=== PATIENT | male | born 1970 | race Caucasian/White ===

== ENCOUNTER 2019-01-29 11:26 | Day surgery (SDC) | payer OTHER ==
[2019-01-29] MEDS ORDERED: Sodium Chloride 0.9(Preservative Free) 10 ML IJ ONE (11:27)
[2019-01-29] MEDS ORDERED: DIPRIVAN 200 MG/20 ML IV ONE (11:27)
[2019-01-29] MEDS ORDERED: Ketamine HCl 50 MG/ML IV ONE (11:27)
[2019-01-29] MEDS ORDERED: Depo-Medrol 40 MG/ML IM ONE (11:27)
[2019-01-29] MEDS ORDERED: Decadron 4 MG INJ IV ONE (11:27)
[2019-01-29] MEDS ORDERED: Xylocaine 1% Vial 30 ML PF IJ ONE (11:27)
--- NOTE | 2019-01-29 15:00 | XRAY ---
34 seconds fluoroscopy time in surgery for left L4-S1 MIR and left piriformis muscle injection.
--- NOTE | 2019-01-29 15:01 | XRAY ---
Indication: Left L4-S1 MIR and left piriformis injection. Intraoperative fluoroscopy was provided for 34 seconds. Single digital spot image of the lumbar spine submitted for interpretation demonstrates posterior needle tips projecting over the expected course of the left L4-L5 nerve roots. Single digital spot image of the pelvis demonstrates posterior needle tip projecting over the left piriformis muscle. Small amount of contrast injected for both needle tip placement. Correlate with intraoperative findings/report.
[2019-01-29] MEDS ORDERED: Lactated Ringers 1,000 ML IV ONE (17:04)
== END 2019-01-29 14:20 | disposition home or self-care (01) ==
LOC: SDC-PAIN 11:26
PROVIDERS: ATTEND Psychiatry & Neurology Pain Medicine
DX: M54.16 Radiculopathy, lumbar region (principal); M79.18 Myalgia, other site; Z79.899 Other long term (current) drug therapy
CPT/HCPCS: 20552; 64483; 64484; 72020; 77003; J1030; J1100; J2001; J2704; Q9966

== ENCOUNTER 2019-07-16 12:37 | Day surgery (SDC) | payer OTHER ==
[2019-07-16] MEDS ORDERED: Decadron 4 MG INJ IV ONE (12:38)
[2019-07-16] MEDS ORDERED: Xylocaine 1% Vial 30 ML PF IJ ONE (12:38)
[2019-07-16] MEDS ORDERED: Depo-Medrol 40 MG/ML IM ONE (12:38)
[2019-07-16] MEDS ORDERED: Sodium Chloride 0.9(Preservative Free) 10 ML IJ ONE (12:38)
[2019-07-16] MEDS ORDERED: DIPRIVAN 200 MG/20 ML IV ONE (14:00)
[2019-07-16] MEDS ORDERED: Ketamine HCl 50 MG/ML ONE (14:01)
--- NOTE | 2019-07-16 14:52 | XRAY ---
23 seconds fluoroscopy time in surgery for left transforaminal MIR.
--- NOTE | 2019-07-16 14:52 | XRAY ---
Indication: Left L4-S1 transforaminal MIR. Intraoperative fluoroscopy was provided for 23 seconds. 4 digital spot images submitted for interpretation demonstrates posterior needle tips projecting over the expected course of the left L4 and L5 nerve roots. Small amount of contrast injected for needle tip placement. Correlate with intraoperative findings/report.
--- NOTE | 2019-07-16 15:02 | XRAY ---
12 seconds fluoroscopy time in surgery for left piriformis muscle injection.
--- NOTE | 2019-07-16 15:02 | XRAY ---
Indication: Left piriformis muscle injection. Intraoperative fluoroscopy was provided for 12 seconds. 2 digital spot images submitted for interpretation demonstrates posterior needle tip projecting over the expected left piriformis muscle. Small amount of contrast injected for needle tip placement. Correlate with intraoperative findings/report.
[2019-07-16] MEDS ORDERED: Lactated Ringers 1,000 ML IV ONE (15:19)
== END 2019-07-16 14:33 | disposition home or self-care (01) ==
LOC: SDC-PAIN 12:37
PROVIDERS: ATTEND Psychiatry & Neurology Pain Medicine
DX: M54.16 Radiculopathy, lumbar region (principal); M79.18 Myalgia, other site; Z79.899 Other long term (current) drug therapy
CPT/HCPCS: 20552; 64483; 64484; 72020; 77002; 77003; J1030; J1100; J2001; J2704; Q9966

== ENCOUNTER 2020-02-11 09:41 | Day surgery (SDC) | payer OTHER ==
[2020-02-11] MEDS ORDERED: Xylocaine-Mpf 2% 5 Ml Vial IJ ONE (09:42)
[2020-02-11] MEDS ORDERED: Depo-Medrol 40 MG/ML IM ONE (09:42)
[2020-02-11] MEDS ORDERED: Ketamine HCl 50 MG/ML ONE (10:35)
[2020-02-11] MEDS ORDERED: DIPRIVAN 200 MG/20 ML IV ONE (10:35)
--- NOTE | 2020-02-11 12:33 | XRAY ---
Indication: Left L4-S1 MBB. Intraoperative fluoroscopy was provided for 7 seconds. Single digital spot image submitted for interpretation demonstrates posterior needle tips projecting over the expected course of the left L4-S1 nerve roots. Correlate with intraoperative findings/report.
--- NOTE | 2020-02-11 12:37 | XRAY ---
7 seconds fluoroscopy time in surgery for left L4-S1 MBB.
[2020-02-11] MEDS ORDERED: Lactated Ringers 1,000 ML IV ONE (14:56)
== END 2020-02-11 11:03 | disposition home or self-care (01) ==
LOC: SDC-PAIN 09:41
PROVIDERS: ATTEND Psychiatry & Neurology Pain Medicine
DX: M47.816 Spondylosis without myelopathy or radiculopathy, lumbar region (principal); Z79.899 Other long term (current) drug therapy
CPT/HCPCS: 64493; 64494; 72020; 77002; J1030; J2704

== ENCOUNTER 2020-03-03 10:09 | Day surgery (SDC) | payer OTHER ==
[2020-03-03] MEDS ORDERED: Sodium Chloride 0.9(Preservative Free) 10 ML IJ ONE (10:10)
[2020-03-03] MEDS ORDERED: Xylocaine 1% Vial 30 ML PF IJ ONE (10:10)
[2020-03-03] MEDS ORDERED: Depo-Medrol 40 MG/ML IM ONE (10:10)
[2020-03-03] MEDS ORDERED: Decadron 4 MG INJ IV ONE (10:10)
[2020-03-03] MEDS ORDERED: Ketamine HCl 50 MG/ML ONE (11:11)
[2020-03-03] MEDS ORDERED: DIPRIVAN 200 MG/20 ML IV ONE (11:11)
--- NOTE | 2020-03-03 12:14 | XRAY ---
Indication: Left L4-S1 transforaminal MIR. Intraoperative fluoroscopy was provided for 22 seconds. 4 digital spot images submitted for interpretation demonstrates posterior needle tips projecting over the expected course of the left L4 and L5 nerve roots. Small amount of contrast injected for needle tip placement. Correlate with intraoperative findings/report.
--- NOTE | 2020-03-03 12:16 | XRAY ---
Indication: Left piriformis muscle injection. Intraoperative fluoroscopy was provided for 14 seconds. Single digital spot image submitted for interpretation demonstrates posterior needle tip projecting over the expected left piriformis muscle. Small amount of contrast injected for needle tip placement. Correlate with intraoperative findings/report.
--- NOTE | 2020-03-03 13:16 | XRAY ---
14 seconds fluoroscopy time in surgery for left piriformis muscle injection.
--- NOTE | 2020-03-03 13:21 | XRAY ---
22 seconds fluoroscopy time in surgery for left L4-SS1 transforaminal MIR.
[2020-03-03] MEDS ORDERED: Lactated Ringers 1,000 ML IV ONE (15:49)
== END 2020-03-03 11:40 | disposition home or self-care (01) ==
LOC: SDC-PAIN 10:09
PROVIDERS: ATTEND Psychiatry & Neurology Pain Medicine
DX: M54.16 Radiculopathy, lumbar region (principal); M79.18 Myalgia, other site; Z79.899 Other long term (current) drug therapy
CPT/HCPCS: 20552; 64483; 64484; 72020; 72100; 77002; 77003; J1030; J1100; J2001; J2704; Q9966

== ENCOUNTER 2020-07-28 10:19 | Day surgery (SDC) | payer OTHER ==
[2020-07-28] MEDS ORDERED: Sodium Chloride 0.9(Preservative Free) 10 ML IJ ONE (10:20)
[2020-07-28] MEDS ORDERED: Xylocaine 1% Vial 30 ML PF IJ ONE (10:20)
[2020-07-28] MEDS ORDERED: Depo-Medrol 40 MG/ML IM ONE (10:20)
[2020-07-28] MEDS ORDERED: Decadron 4 MG INJ IV ONE (10:20)
[2020-07-28] MEDS ORDERED: DIPRIVAN 200 MG/20 ML IV ONE (12:10)
[2020-07-28] MEDS ORDERED: Ketamine HCl 50 MG/ML ONE (12:11)
--- NOTE | 2020-07-28 13:42 | XRAY ---
Indication: Left L4-S1 transforaminal MIR. Intraoperative fluoroscopy was provided for 28 seconds. 3 digital spot images submitted for interpretation demonstrates posterior needle tips projecting over the expected right L4 and L5 nerve roots. Small amount of contrast injected for needle tip placement. Correlate with intraoperative findings/report.
--- NOTE | 2020-07-28 13:42 | XRAY ---
Indication: Left piriformis injection. Intraoperative fluoroscopy was provided for 9 seconds. Single digital spot image submitted for interpretation demonstrates posterior needle tip projecting over the expected left piriformis muscle. Small amount of contrast injected for needle tip placement. Correlate with intraoperative findings/report.
--- NOTE | 2020-07-28 13:49 | XRAY ---
9 seconds fluoroscopy time n surgery for left piriformis injection.
--- NOTE | 2020-07-28 13:59 | XRAY ---
28 seconds fluoroscopy time in surgery for left L4-S transforaminal MIR.
[2020-07-28] MEDS ORDERED: Lactated Ringers 1,000 ML IV ONE (15:30)
== END 2020-07-28 12:44 | disposition home or self-care (01) ==
LOC: SDC-PAIN 10:19
PROVIDERS: ATTEND Psychiatry & Neurology Pain Medicine
DX: M60.9 Myositis, unspecified (principal); M54.16 Radiculopathy, lumbar region; Z79.899 Other long term (current) drug therapy
CPT/HCPCS: 20552; 64483; 72020; 72100; 77002; 77003; J1030; J1100; J2001; J2704; Q9966

== ENCOUNTER 2020-12-22 10:15 | Day surgery (SDC) | payer OTHER ==
[2020-12-22] MEDS ORDERED: Decadron 4 MG INJ IV ONE (10:16)
[2020-12-22] MEDS ORDERED: Depo-Medrol 40 MG/ML IM ONE (10:16)
[2020-12-22] MEDS ORDERED: Sodium Chloride 0.9(Preservative Free) 10 ML IJ ONE (10:16)
[2020-12-22] MEDS ORDERED: Xylocaine 1% Vial 30 ML PF IJ ONE (10:16)
[2020-12-22] MEDS ORDERED: DIPRIVAN 200 MG/20 ML IV ONE (11:50)
--- NOTE | 2020-12-22 13:26 | XRAY ---
Indication: Left piriformis injection. Intraoperative fluoroscopy provided for 8 seconds. Single digital spot image obtained prone submitted for interpretation demonstrates needle tip projecting over the expected left piriformis muscle. Small amount of contrast injected for needle tip placement. Correlate with intraoperative findings/report.
--- NOTE | 2020-12-22 13:26 | XRAY ---
Indication: Left L4-S1 transforaminal MIR. Intraoperative fluoroscopy provided for 28 seconds. 3 digital spot images submitted for interpretation demonstrates posterior needle tips projecting over the expected left L4 and L5 nerve roots. Small amount of contrast injected for needle tip placement. Correlate with intraoperative findings/report.
--- NOTE | 2020-12-22 13:28 | XRAY ---
8 seconds fluoroscopy time in surgery for left piriformis muscle injection.
--- NOTE | 2020-12-22 13:28 | XRAY ---
28 seconds fluoroscopy time in surgery for left L4-S1 transforaminal MIR.
[2020-12-22] MEDS ORDERED: Lactated Ringers 1,000 ML IV ONE (16:03)
== END 2020-12-22 12:33 | disposition home or self-care (01) ==
LOC: SDC-PAIN 10:15
PROVIDERS: ATTEND Psychiatry & Neurology Pain Medicine
DX: M54.16 Radiculopathy, lumbar region (principal); M79.18 Myalgia, other site; M19.90 Unspecified osteoarthritis, unspecified site
CPT/HCPCS: 72020; 72100; 77002; 77003; J1030; J1100; J2001; J2704

== ENCOUNTER 2021-02-25 22:19 | Emergency (ER) | payer OTHER ==
--- NOTE | 2021-02-25 22:39 | ERPHSYRPT ---
- History of Present Illness Time Seen by Provider: 02/25/21 22:38 Source: patient Exam Limitations: no limitations Physician History: This is a 50-year-old white male who did not see a tick bite or insect bite but does have an area on his lower abdominal wall/pannus that appears to be some type of insect bite. Is been present for 1 to 2 weeks at the most. In the last few days patient has become symptomatic with intermittent fevers body aches and muscle aches. He also was noted to have a skin rash on his bilateral upper extremities and torso anteriorly. He has never had anything like this before in the past. Timing/Duration: day(s) (3 days), worse Quality: painful Severity: mild (To moderate) Location: torso, extremities (Bilateral upper and lower extremities) Possible Causes: no cause identified, other (Possible insect bite) Associated Symptoms: rash Allergies/Adverse Reactions: No Known Drug Allergies Allergy (Unverified 02/23/16 16:02) Hx Tetanus, Diphtheria Vaccination/Date Given: No (ABOUT 10 YEARS) Hx Influenza Vaccination/Date Given: No Hx Pneumococcal Vaccination/Date Given: No Travel Risk - International Travel Have you traveled outside of the country in past 3 weeks: No - Coronavirus Screening Are you exhibiting any of the following symptoms?: No Close contact with a COVID-19 positive Pt in past 14-21 Days: No - Review of Systems Constitutional: Fever Eyes: No Symptoms Ears, Nose, & Throat: No Symptoms Respiratory: No Symptoms Cardiac: No Symptoms Abdominal/Gastrointestinal: No Symptoms Genitourinary Symptoms: No Symptoms Musculoskeletal: No Symptoms Skin: Rash (Fine rash chest wall with several punctate slightly red lesions bilateral upper extremities and bilateral lower extremities.), Other (Read skin lesion lower midline abdominal wall/pannus.) Neurological: No Symptoms Psychological: No Symptoms Endocrine: No Symptoms Hematologic/Lymphatic: Easy Bruising Immunological/Allergic: No Symptoms All Other Systems: Reviewed and Negative - Past Medical History Pertinent Past Medical History: Yes Neurological History: No Pertinent History ENT History: No Pertinent History Cardiac History: No Pertinent History Respiratory History: No Pertinent History Endocrine Medical History: No Pertinent History Musculoskeletal History: Degenerative Disk Disease GI Medical History: No Pertinent History History: No Pertinent History Psycho-Social History: No Pertinent History Male Reproductive Disorders: No Pertinent History - Past Surgical History Past Surgical History: Yes Neuro Surgical History: No Pertinent History Cardiac: No Pertinent History Respiratory: No Pertinent History Gastrointestinal: Appendectomy Genitourinary: No Pertinent History Musculoskeletal: Orthopedic Surgery Male Surgical History: Vasectomy Other Surgical History: TONSILS. Left knee scoped - Social History Smoking Status: Never smoker Exposure to second hand smoke: No Drug Use: none Patient Lives Alone: No - Nursing Vital Signs Nursing Vital Signs: Initial Vital Signs Temperature 98.2 F 02/25/21 22:29 Pulse Rate 80 02/25/21 22:29 Respiratory Rate 18 02/25/21 22:29 Blood Pressure 137/91 02/25/21 22:29 O2 Sat by Pulse Oximetry 95 02/25/21 22:29 Pain Scale Pain Intensity 3 - Physical Exam General Appearance: no apparent distress, alert, anxiety Eye Exam: PERRL/EOMI, eyes nml inspection Ears, Nose, Throat Exam: normal ENT inspection, moist mucous membranes Neck Exam: normal inspection, non-tender, supple, full range of motion Respiratory Exam: normal breath sounds, lungs clear, airway intact, No chest tenderness, No respiratory distress Cardiovascular Exam: regular rate/rhythm, normal heart sounds, normal peripheral pulses Gastrointestinal/Abdomen Exam: soft, normal bowel sounds, No tenderness Rectal Exam: not done Back Exam: normal inspection, normal range of motion, vertebral tenderness, No CVA tenderness Extremity Exam: normal inspection, normal range of motion, pelvis stable Neurologic Exam: alert, oriented x 3, cooperative, box car washer II-XII nml as tested, normal mood/affect, nml cerebellar function, nml station & gait, sensation nml Skin Exam: normal color, warm, dry Lymphatic Exam: No adenopathy SpO2 Interpretation: normal SpO2: 95 O2 Delivery: Room Air - Course Nursing assessment & vital signs reviewed: Yes Ordered Tests: Active Orders 24 hr Category Date Time Status IV Insertion STAT Care 02/25/21 22:47 Active Pulse Oximetry (ED) STAT Care 02/25/21 22:47 Active BLOOD CULTURE Stat Lab 02/25/21 23:00 Received CBC W DIFF Stat Lab 02/25/21 22:50 Received CMP Stat Lab 02/25/21 22:50 Received Lactic Acid Stat Lab 02/25/21 23:00 Completed Medication Summary Generic Name Dose Route Start Last Admin Trade Name Freq PRN Reason Stop Dose Admin Sodium Chloride 1,000 mls @ 999 mls/hr 02/25/21 22:47 02/25/21 23:02 Sodium Chloride 0.9% 1000 Ml IV 02/25/21 23:47 999 mls/hr .[id number] STA Administration Discontinued Medications Generic Name Dose Route Start Last Admin Trade Name Tomas PRN Reason Stop Dose Admin Doxycycline Hyclate 100 mg 02/25/21 22:49 02/25/21 23:02 Vibramycin 100 Mg PO 02/25/21 22:50 100 mg STAT ONE Administration Doxycycline Hyclate 100 mg 02/25/21 22:49 02/25/21 23:02 Vibramycin 100 Mg PO 02/25/21 22:50 100 mg STAT ONE Administration Doxycycline Hyclate Confirm 02/25/21 23:00 Vibramycin 100 Mg Administered 02/25/21 23:01 Dose 200 mg .ROUTE .STK-MED ONE Sodium Chloride Confirm 02/25/21 23:00 Sodium Chloride 0.9% 1000 Ml Administered 02/25/21 23:01 Dose 1,000 mls @ ud .ROUTE .STK-MED ONE Lab/Rad Data: Laboratory Results 02/25/21 Range/Units 23:00 Lactic Acid 1.3 (0.4-2.0) - Progress Progress: unchanged Counseled pt/family regarding: lab results, diagnosis, need for follow-up - Departure Departure Disposition: Home Clinical Impression: Skin rash, Arthralgia, Myalgia, Insect bite Condition: Stable Critical Care Time: No Referrals: CITLALI MAIER [Primary Care Provider] - Additional Instructions: Drink plenty of fluids. Use Tylenol and ibuprofen for pain and fever control. Follow-up with Lyme disease test and [place] spotted fever test next week with your primary care physician. Take your medication as prescribed. Prescriptions: Doxycycline Hyclate 100 mg [Vibramycin 100 MG] 100 mg PO BID #18 tab
[2021-02-25] MEDS ORDERED: Sodium Chloride 0.9% 1000 ML 1,000 ML IV STA (22:47)
[2021-02-25] MEDS ORDERED: Vibramycin 100 MG PO ONE ×2 (22:49)
[2021-02-25] MEDS ORDERED: Vibramycin 100 MG ONE (23:00)
[2021-02-25] MEDS ORDERED: Sodium Chloride 0.9% 1000 ML 1,000 ML ONE (23:00)
[2021-02-25 23:08] LABS: Absolute Neutrophil Ct (ANC) 1.39 (1.4-6.9); BASOPHIL % 1.1 % (0.0-0.4); Basophil (Absolute #) 0.03 (0-0.4); Eosinophil % 0.4 % (0.00-5.0); Eosinophil (Absolute #) 0.01 (0-0.5); Hematocrit 43.7 % (42-50); Lymphocyte (Absolute #) 0.97 (1.0-4.6); Lymphocytes % 35.8 % (24.0-44.0); Mean Corpuscular Hemoglobin 30.5 pg (26-32); Mean Corpuscular Hgb Concent. 34.3 g/dl (32-36); Mean Platelet Volume 10.6 fl (7.5-11.0); Monocyte (Absolute #) 0.31 (0.0-1.3); Monocytes % 11.4 % (0.0-12.0); Neutrophil % 51.3 % (36.0-66.0); Platelet Count 142 K/mm3 (150-450); Red Blood Count 4.91 M/mm3 (4.1-5.6); Red Cell Distribution Width 13.4 % (11.5-14.0); White Blood Count 2.7 K/mm3 (4.0-10.5)
[2021-02-25 23:26] LABS: ALBUMIN 3.8 g/dL (3.5-5.0); ALKALINE PHOSPHATASE 260 U/L (38-126); BLOOD UREA NITROGEN 12 mg/dL (9-20); CHLORIDE 104 mmol/L (98-107); Calcium 8.7 mg/dL (8.4-10.2); Carbon Dioxide 24 mmol/L (22-30); Creatinine 1 0.84 mg/dL (0.66-1.25); EST GLOMERULAR FILTRATION RATE > 60.0 ML/MIN; Glucose 138 mg/dL (74-106); Potassium 3.7 mmol/L (3.5-5.1); SGOT/AST 258 U/L (17-59); SGPT/ALT 313 U/L (0-50); SODIUM 137 mmol/L (137-145); Total Protein 6.8 g/dL (6.3-8.2)
[2021-02-25 23:52] VITALS: BP 128/85; PULSE 75; O2SAT 97
[2021-02-27 11:08] LABS: HBsAg Screen Negative (Negative); Hep A Ab, IgM Negative (Negative); Hep B Core Ab, IgM Negative (Negative)
[2021-02-27 11:40] LABS: Hep C Virus Ab <0.1 s/co ratio (0.0-0.9)
[2021-03-01 07:23] LABS: Rocky Mtn Spotted Fever, IgM 0.16 index (0.00-0.89)
== END 2021-02-25 23:53 ==
LOC: ED 22:19
DX: R21 Rash and other nonspecific skin eruption (principal); M25.50 Pain in unspecified joint; M79.10 Myalgia, unspecified site; S30.861A Insect bite (nonvenomous) of abdominal wall, initial encounter
CPT/HCPCS: 36000; 36415; 80053; 80074; 83605; 85025; 86617; 86618; 86757; 87040; 94760; 99284; A9270-GY

== ENCOUNTER 2021-05-18 13:33 | Day surgery (SDC) | payer OTHER ==
[2021-05-18] MEDS ORDERED: Decadron 4 MG INJ IV ONE (13:34)
[2021-05-18] MEDS ORDERED: Xylocaine 1% Vial 30 ML PF IJ ONE (13:34)
[2021-05-18] MEDS ORDERED: Sodium Chloride 0.9(Preservative Free) 10 ML IJ ONE (13:34)
[2021-05-18] MEDS ORDERED: Depo-Medrol 80 MG/ML IM ONE (13:34)
[2021-05-18] MEDS ORDERED: DIPRIVAN 200 MG/20 ML IV ONE (15:08)
[2021-05-18] MEDS ORDERED: Lactated Ringers 1,000 ML IV ONE (17:29)
--- NOTE | 2021-05-18 18:22 | XRAY ---
Indication: Left piriformis injection. Intraoperative fluoroscopy provided for 8 seconds. Single digital spot image submitted for interpretation demonstrates needle tip projecting over the left piriformis muscle. Small amount of contrast injected for needle tip placement. Correlate with intraoperative findings/report.
--- NOTE | 2021-05-18 18:24 | XRAY ---
Indication: Left L4-S1 transforaminal MIR. Intraoperative fluoroscopy provided for 14 seconds. 2 digital spot images submitted for interpretation demonstrates posterior needle tips projecting over the expected left L4 and L5 nerve roots. Small amount of contrast injected for needle tip placement. Correlate with intraoperative findings/report.
--- NOTE | 2021-05-18 19:03 | XRAY ---
8 seconds of fluoroscopy was used in surgery for a left piriformis injection.
--- NOTE | 2021-05-18 19:03 | XRAY ---
14 seconds of fluoroscopy was used in surgery for a left L4-S1 transforaminal MIR.
== END 2021-05-18 15:35 | disposition home or self-care (01) ==
LOC: SDC-PAIN 13:33
PROVIDERS: ATTEND Psychiatry & Neurology Pain Medicine
DX: M79.18 Myalgia, other site (principal); M54.16 Radiculopathy, lumbar region; Z79.899 Other long term (current) drug therapy
CPT/HCPCS: 20552; 64483; 64484; 72020; 72100; 77002; 77003; J1040; J1100; J2001; J2704; Q9966

== ENCOUNTER 2021-12-08 08:54 | Day surgery (SDC) | payer OTHER ==
[2021-12-08] MEDS ORDERED: Decadron 4 MG INJ IV ONE (08:55)
[2021-12-08] MEDS ORDERED: Sodium Chloride 0.9(Preservative Free) 10 ML IJ ONE (08:55)
[2021-12-08] MEDS ORDERED: Xylocaine 1% Vial 30 ML PF IJ ONE (08:55)
[2021-12-08] MEDS ORDERED: Depo-Medrol 40 MG/ML IM ONE (08:55)
[2021-12-08] MEDS ORDERED: Lactated Ringers 1,000 ML IV ONE (10:08)
[2021-12-08] MEDS ORDERED: DIPRIVAN 200 MG/20 ML IV ONE (10:15)
--- NOTE | 2021-12-08 12:00 | XRAY ---
Indication: Left L4-S1 transforaminal MIR and left piriformis injection Intraoperative fluoroscopy provided for 53 seconds. 2 digital spot image submitted for interpretation demonstrates posterior needle tips projecting over the presumed left L4 and L5 nerve roots. Additional needle tip projects over the left piriformis muscle with small amount of contrast injected for needle tip placement. Correlate with intraoperative findings/report.
--- NOTE | 2021-12-08 12:12 | XRAY ---
53 seconds fluoroscopy time in surgery for left L4-S1 transforaminal MIR and injection of the left piriformis muscle.
== END 2021-12-08 10:48 | disposition home or self-care (01) ==
LOC: SDC-PAIN 08:54
PROVIDERS: ATTEND Psychiatry & Neurology Pain Medicine
DX: M54.16 Radiculopathy, lumbar region (principal); Z79.899 Other long term (current) drug therapy
CPT/HCPCS: 20552; 64483; 64484; 72100; 77002; 77003; J1030; J1100; J2001; J2704; Q9966

== ENCOUNTER 2023-03-14 07:49 | Day surgery (SDC) | payer OTHER ==
[2023-03-14] MEDS ORDERED: Sodium Chloride 0.9(Preservative Free) 10 ML IJ ONE (07:50)
[2023-03-14] MEDS ORDERED: Decadron 4 MG INJ IV ONE (07:50)
[2023-03-14] MEDS ORDERED: Depo-Medrol 40 MG/ML IM ONE (07:50)
[2023-03-14] MEDS ORDERED: LIDOCAINE HCL 1% 50 MG/5 ML VL PF IJ ONE (07:50)
[2023-03-14] MEDS ORDERED: DIPRIVAN 200 MG/20 ML IV ONE ×2 (10:05→10:15)
[2023-03-14] MEDS ORDERED: MORPHINE SULFATE 2 MG INJ ONE (10:26)
--- NOTE | 2023-03-14 12:03 | XRAY ---
Indication: Left L4-S1 transforaminal MIR. Intraoperative fluoroscopy provided for 32 seconds. 4 digital spot image submitted for interpretation demonstrates needle tips projecting over the expected the left L4 and L5 nerve roots. Small amount of contrast injected for needle tip placement. Correlate with intraoperative findings/report.
--- NOTE | 2023-03-14 12:07 | XRAY ---
34 seconds of fluoroscopy was used in surgery for a left piriformis injection.
--- NOTE | 2023-03-14 12:08 | XRAY ---
32 seconds of fluoroscopy was used in surgery for a left L4-S1 transforaminal MIR.
--- NOTE | 2023-03-14 12:08 | XRAY ---
Indication: Left piriformis injection. Intraoperative fluoroscopy provided for 24 seconds. Single digital spot image submitted for interpretation demonstrates needle tip projecting over the expected left piriformis. Small amount of contrast injected for needle tip placement. Correlate with intraoperative findings/report.
[2023-03-14] MEDS ORDERED: Lactated Ringers 1,000 ML IV ONE (12:43)
== END 2023-03-14 10:45 | disposition home or self-care (01) ==
LOC: SDC-PAIN 07:49
PROVIDERS: ATTEND Psychiatry & Neurology Pain Medicine
DX: M54.16 Radiculopathy, lumbar region (principal); M79.18 Myalgia, other site; Z79.899 Other long term (current) drug therapy
CPT/HCPCS: 20552; 64483; 72100; 72170; 77002; 77003; J1030; J1100; J2001; J2270; J2704; Q9966

== ENCOUNTER 2024-04-09 08:07 | Day surgery (SDC) | payer OTHER ==
[2024-04-09] MEDS ORDERED: LIDOCAINE HCL 1% 50 MG/5 ML VL PF IJ ONE (08:08)
[2024-04-09] MEDS ORDERED: Sodium Chloride 0.9(Preservative Free) 10 ML IJ ONE (08:08)
[2024-04-09] MEDS ORDERED: Decadron 4 MG INJ IV ONE (08:08)
[2024-04-09] MEDS ORDERED: DIPRIVAN 200 MG/20 ML IV ONE (10:24)
[2024-04-09] MEDS ORDERED: Lactated Ringers 1,000 ML IV ONE (10:39)
--- NOTE | 2024-04-09 11:52 | XRAY ---
Indication: Left L4-S1 transforaminal IMR. Intraoperative fluoroscopy provided for 26 seconds. 5 digital spot images submitted for interpretation demonstrates posterior needle tips projecting over the expected left L4 and L5 nerve roots. Small amount of contrast injected for needle tip placement. Correlate with intraoperative findings/report.
--- NOTE | 2024-04-09 11:54 | XRAY ---
Indication: Left piriformis injection. Intraoperative fluoroscopy provided for 20 seconds. Single digital spot image submitted for interpretation demonstrates posterior needle tip projecting over left piriformis. Small amount of contrast injected for needle tip placement. Correlate with intraoperative findings/report.
--- NOTE | 2024-04-09 12:04 | XRAY ---
26 seconds of fluoroscopy was used in surgery for a left L4-S1 transforaminal MIR.
--- NOTE | 2024-04-09 12:06 | XRAY ---
20 seconds of fluoroscopy was used in surgery for a left piriformis injection.
== END 2024-04-09 10:57 ==
LOC: SDC-PAIN 08:07
PROVIDERS: ATTEND Psychiatry & Neurology Pain Medicine
DX: M54.16 Radiculopathy, lumbar region (principal); M79.18 Myalgia, other site
CPT/HCPCS: 20552; 64483; 64484; 72100; 72170; 77002; 77003; J1100; J2001; J2704; Q9966